=== PATIENT | female | born 1990 | race Caucasian/White ===

== ENCOUNTER → 2020-06-11 15:50 | Outpatient (CLI) | payer OTHER, SELFPAY ==
[2020-06-14 20:08] LABS: Chlamydia By Nucleic Acid AMP Negative (Negative)
[2020-06-14 21:50] LABS: Gonococcus By Nucleic Acid AMP Negative (Negative)
== END ==
PROVIDERS: Visit Provider Obstetrics & Gynecology
DX: Z11.3 Encounter for screening for infections with a predominantly sexual mode of transmission (principal)
CPT/HCPCS: 87491; 87591

== ENCOUNTER 2020-10-30 04:53 | Inpatient (IN) | payer SELFPAY, OTHER ==
[2020-10-30] VITALS (20 sets, daily range): BP systolic 95–124; BP diastolic 36–76; PULSE 47–91; RESP 14–16; TEMP 36.1–36.6; O2SAT 95–99; BMI 25.6
[2020-10-30] MEDS: Lactated Ringers 1,000 ML 999 ML IV (05:15)
[2020-10-30 05:35] LABS: Absolute Lymphocyte Count 1.58 X10^3/uL (0.83-4.51); Basophil# 0.02 X10^3/uL; Basophil% 0.3 % (0-1); Eosinophil# 0.13 X10^3/uL; Eosinophils% 2.1 % (0-5); Hematocrit 32.1 % (37-47); Hemoglobin 11.2 g/dL (12.0-15.0); Lymphocyte # 1.58 X10^3/ul (4.0); Mean Corp Hgb Conc 34.9 g/dL (32-36); Mean Corpuscular Hgb 31.6 pg (27.0-32.0); Mean Corpuscular Volume 90.7 fL (81-99); Mean Platelet Vol. 8.9 fl (6.2-12.0); Monocyte# 0.56 X10^3/uL; Monocyte% 8.9 % (0-10); NRBC Flagged by Analyzer 0 % (0-5); Neutrophil # 3.99 X10^3/uL (2.7-7.7); Neutrophil % 63.2 % (47-70); Platelet Count 142 K/mm3 (150-450); RBC Distribution Width CV 12.6 % (11.6-14.6); RBC Distribution Width SD 41.4 fl (35.1-43.9); Red Blood Count 3.54 M/mm3 (4.2-5.4); White Blood Count 6.3 K/mm3 (4.4-11.0)
[2020-10-30] MEDS: Acetaminophen 500 MG Tablet 1000 MG PO ×4 (05:40→23:47)
[2020-10-30] MEDS: Lactated Ringers 1,000 ML 150 ML IV (06:18)
[2020-10-30] MEDS: Sodium Citrate/Citric Acid 30 ML UDC PO (07:14)
[2020-10-30] MEDS: Cefazolin 2 GM in 0.9% Normal Saline 100 ML IV (07:31)
--- NOTE | 2020-10-30 07:32 | PCM.HP.BLA ---
History and Physical Date of Admission: 10/30/20 ACOG ANTEPARTUM RECORD - HISTORY AND PHYSICAL (10/30/2020) Name: JAJA OROZCO History of this : This is a 30 year old [id number] presents at 39 wks + 1 days gestation for repeat . 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 : 1990 Age: 30 Address: [address] [place] [address] Phone: H) [phone] Insurance Carrier: [employer] [phone] Emergency Contact: CANDE NAVA (NEIGHBOR) [phone] ...................................................................... Final MEENU: 11/05/20 By Ultrasound: 22 weeks 3 days PARITY: (G-Total Pregnancies P-Fullterm,Premature,Induced AB,Spont AB, Ectopics, Multiple,Living) MEENU CONFIRMATION: By LMP: 01/31/20 Final MEENU: 11/05/20 OB PROBLEM LIST: AFP and carrier screening declined Breast feeding Late to care Lives almost 90 minutes from [place] Prior C/S x 3, plans repeat C/S Prior (2009) Spouse has an uncle with Down Syndrome ALLERGIES: NKDA MEDICATIONS: Vitamin tablet SOCIAL HISTORY: Smoking - Never Alcohol Use - None Diet - no particular diet Lifestyle - low stress lifestyle and Exercise - active Employer - [employer] 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 Drug Use - None Sexual Activity - Residence - lives with Place of - [place], [place] Spouse-Sig Other Name - Candelario Spouse-Sig Other Occupation - Furniture [employer] Children Name(s) - DannyElias rahman Elaine, Matthias(16) PRIOR DELIVERY HISTORY DEL DATE GEST LAB WT LB WT OZ TYPE ANES LABOR TX 04 Nov 08 38 0 5 12 C-Sec Epidural No 06 Sep 16 39 0 7 3 C-Sec Spinal No 20 Mar 10 39 22 6 12 Epidural No 25 Jan 13 39 0 6 7 C-Sec Spinal No ANTEPARTUM FLOW CHART VISIT GE RTC FU F F KS U U DATE WK MD WKS HT PN HR M SS BP ED WT KS GL D EF ST __ ____ ___ __ __ ___ __ __ __ ___ __ __ __ ___ __ Sep 38 JMW 3 38 + 102/64 sl 151 tr - 09 Sep 36 JMW 1 36 + + 122/86 sl 151 - - 02 Sep 35 JMW 1 35 + + 122/68 0 149 - - 09 Feb 32 JMW 2 32 + + 112/68 0 149 tr - Aug 31 JM 2 30 - + + 117/78 0 147 tr - Jul 27 JMW 3 26 + + 115/75 0 143 - - 02 Dec 22 JMW 4 21 + + 122/74 0 138 - - ANTEPARTUM NOTE(S): Oct 22 2020: Pre-op consents signed,Drink/Wash given Oct 08 2020: LARC form signed, Good FM Oct 01 2020: Ctxs-occas, Good FM Sep 10 2020: Feeling Well,Good FM Aug 27 2020: Doing Well Jul 30 2020: Doing Well, 1hrGTT/CBC today Jul 03 2020: Sono Today, See Note COMPREHENSIVE ANTEPARTUM NOTE(S): Oct 22 2020: Jaja presents here today for PNV and pre-op for her Wednesday10/30/20 with PASQUALE at [facility]. Questions answered and consents signed. Covid screening form signed and a copy given as well as faxed to [facility]. Denies new concerns at this time. SARAH Aug 27 2020: 30wk, 1hr GTT wnl. JM Jul 03 2020: Jaja presents here today for PNV, and Sono. Reports she has been having trouble with varicose veins and would like to get some stockings. Script provided for compression stockings. Glucola/Instructions given. Good FM. SARAH Jun 26 2020: TELEHEALTH NOB VISIT - 30 MINUTE DURATION. Jaja is a 29 year old with an MEENU of 11/05/2020, current GA is 21 w 1 d. 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 She has had 3 previous C/S's, and 1 ; she plans to have a R C/S at [facility]. Breast feeding is planned. Past history updated. Jaja states that she feels very good and Jun 11 2020: Jaja presents for her Missed Menses. She is a 29yo G 5, P 4 with hx of 3prior C-sections. She is planning to deliver via R/ at [facility]. LMP 01/31/20, MEENU by LMP is 11/05/20. Pt is approx 18w 5d GA and is reporting +FM. She is taking OTC PNV's. No questions or concerns voiced. depression screening has a score of 0 today, and poses no difficulty with ADL's. +UPT in office today. JT Nov 10 2020: ok REVIEW OF SYSTEMS: GENERAL - Denies fever, or chills SKIN - Denies rash, new skin lesions, or change in moles EYES - Denies blurred vision, or change in visual acuity EARS - Denies ear pain, or difficulty hearing NOSE - Denies nasal congestion, discharge, or bleeding MOUTH - Denies sore throat, or difficulty swallowing NECK - Denies pain or swelling RESPIRATORY - Denies shortness of breath, cough, wheezing CARDIOVASCULAR - Denies palpitations, chest pain, orthopnea, PND, peripheral edema, syncope or claudication GASTROINTESTINAL - Denies nausea, vomiting, diarrhea, constipation, Denies abdominal pain, melena and or bright red blood GENITOURINARY - Denies dysuria, frequency of urination, urgency, or hesitancy MUSCULOSKELETAL - Denies joint or muscle pain, or back pain NEUROLOGICAL - Denies localized numbness, weakness, or tingling PSYCHIATRIC - Denies depression, anxiety, substance abuse or suicide attempts ENDOCRINE - Denies heat or cold intolerance, weight loss or gain, increasing thirst HEMATO-IMMUNOLOGIC - Denies easy bruising, bleeding, oral ulcerations or recurrent infections GENETICS SCREENING: Age 35+ years: No Thalassemia: No Neural Tube Defect: No Down Syndrome: Spouse's uncle CLAUDETTE-SACHS: No Sickle Cell Disease: No Hemophilia: No Musc. Dystrophy: No Cystic Fibrosis: No-declines screening [place] Chorea: No Mental Retardation: No Fragile X: No Other genetic: No Other defects: No SABs/still births: No Drugs since LMP: No INFECTION HISTORY: High risk AIDS: No High risk Hepatitis: No Exposed to TB: No Exposed to Herpes: No Rash/viral illness since LMP: No History of STD: No MENSTRUAL HISTORY: *Menarche (Age Onset): 11* PAST SUMMARY: PARITY: 1. Total Pregnancies............ 5 2. Full Term Pregnancies........ 4 3. Premature.................... 0 4. Abortions - Induced.......... 0 5. Abortions - Spontaneous...... 0 6. Ectopics..................... 0 7. Multiple Births.............. 0 8. Living Children.............. 4 PAST #1: Date of :.................. 06/05/08 Gestation Weeks:................ 38 Length of labor(hours):......... 0 Sex:............................ M Weight-lbs:............... 5 Weight-oz:................ 12 Type of Delivery:............... C-Sect Type of Anesthesia:............. Epidural Place of Delivery:.............. [facility] Treatment of Labor?:.... No Comment: TOXEMIA PAST #2: Date of :.................. 03/21/10 Gestation Weeks:................ 39 Length of labor(hours):......... 22 Sex:............................ M Weight-lbs:............... 6 Weight-oz:................ 12 Type of Delivery:............... Type of Anesthesia:............. Epidural Place of Delivery:.............. [facility] Treatment of Labor?:.... No Comment: PAST #3: Date of :.................. 02/23/13 Gestation Weeks:................ 39 Length of labor(hours):......... 0 Sex:............................ F Weight-lbs:............... 6 Weight-oz:................ 7 Type of Delivery:............... C-Sect Type of Anesthesia:............. Spinal Place of Delivery:.............. [facility] Treatment of Labor?:.... No Comment: PPH - 2 U PRBC'S PAST #4: Date of :.................. 04/07/16 Gestation Weeks:................ 39 Length of labor(hours):......... 0 Sex:............................ M Weight-lbs:............... 7 Weight-oz:................ 3 Type of Delivery:............... C-Sect Type of Anesthesia:............. Spinal Place of Delivery:.............. [facility] Treatment of Labor?:.... No Comment: PHYSICAL EXAMINATION General Appearence: 30 yo female in no acute distress Vital Signs: AF, VSS Heart: RRR without rubs or gallops Lungs: CTA x 2 Breasts: deferred Abdomen: gravid Pelvis: Cervix: Presentation: cephalic Station: Fetus: Size: AGA Movement: present Heart: present LAB TEST(S) ORDERED SINCE:02/09/20 07/30/2020 GLUCOSE CHALLENGE 50GM 1 HOUR 07/30/2020 CBC + DIFF 06/16/2020 POMERENE 3 [CCL] 06/14/2020 CHLAMYDIA/GC JOCE APTIMA 06/11/2020 URINALYSIS 06/11/2020 CBC + DIFF 06/11/2020 BB TYPE 10/30/2020 TYPE AND SCREEN 10/30/2020 CBC W/DIFF, AUTOMATED == ==== Order Observation Description Value Ref_Range A* Site == ==== S [facility]~[address] [place], [address]~ TYPE AND SCRE AB SCREEN GEL NEGATIVE ML CBC W/DIFF, AUT NOTE GRIMES CBC W/DIFF, AUT WBC 6.3 K/mm3 4.4-11.0 ML CBC W/DIFF, AUT RBC 3.54 M/mm3 4.2-5.4 L ML CBC W/DIFF, AUT HGB 11.2 g/dL 12.0-15.0 L ML CBC W/DIFF, AUT HCT 32.1 37-47 L ML CBC W/DIFF, AUT MCV 90.7 fL 81-99 ML CBC W/DIFF, AUT MCH 31.6 pg 27.0-32.0 ML CBC W/DIFF, AUT MCHC 34.9 g/dL 32-36 ML CBC W/DIFF, AUT RDW CV 12.6 11.6-14.6 ML CBC W/DIFF, AUT RDW SD 41.4 fl 35.1-43.9 ML CBC W/DIFF, AUT PLT 142 K/mm3 150-450 L ML CBC W/DIFF, AUT MPV 8.9 fl 6.2-12.0 ML CBC W/DIFF, AUT NEUT% 63.2 47-70 ML CBC W/DIFF, AUT LY% 25.0 19-41 ML CBC W/DIFF, AUT MONO% 8.9 0-10 ML CBC W/DIFF, AUT EO% 2.1 0-5 ML CBC W/DIFF, AUT BASO% 0.3 0-1 ML CBC W/DIFF, AUT IG% 0.500 0.0-0.9 ML IG% - Immature Granulocytes (promyelocytes, myelocytes and metamyelocytes) > 1% indicates that a LEFT SHIFT is Present. CBC W/DIFF, AUT ABSOLUTE NEUT 4.0 X10 3/uL 2.0-7.7 ML CBC W/DIFF, AUT ABSOLUTE LYMPH 1.58 X10 3/uL 0.83-4.51 ML CBC W/DIFF, AUT NUCLEATED RBC 0 0-5 ML GLUCOSE CHALLEN NOTE [facility] GLUCOSE CHALLEN GLUCOSE CHALLENGE 50GM [address] [facility] GLUCOSE CHALLENGE 50 GMS 1 HOUR GLUCOSE CHALLEN GLUCOSE 1HR 102 mg/dl 70 - [address] [facility] CBC + DIFF NOTE [facility] CBC + DIFF CBC + DIFF [facility] CBC-COMPLETE BLOOD COUNT CBC + DIFF WBC 7.0 x 10EE3/UL 4.5 - 10.[address] [facility] CBC + DIFF RBC 3.45 x 10EE6/UL 4.10 - 5.[address] [facility] CBC + DIFF HEMOGLOBIN 11.3 g/dl 12.0 - 16.[address] [facility] CBC + DIFF HEMATOCRIT 31.4 % 34.0 - 46.0 L [facility] CBC + DIFF MCV 91 fl 80 - 99 [facility] CBC + DIFF MCH 33 pg 27 - 33 [facility] CBC + DIFF MCHC 36 X10 3 32 - 36 [facility] CBC + DIFF RDW/CV 13.5 % 12.0 - 15.[address] [facility] CBC + DIFF PLATELET 213 x10EE3/UL 150 - 450 [facility] CBC + DIFF MPV 6.6 fl 6.6 - 10.5 [facility] AUTOMATED DIFFERENTIAL CBC + DIFF NEUT % 72.4 % 46.0 - 76.[address] [facility] CBC + DIFF LYMPH % 17.9 % 20.0 - 45.0 L [facility] CBC + DIFF MONOS % 7.6 % 0.0 - 10.[address] [facility] CBC + DIFF EO % 1.6 % 0.0 - 7.[address] [facility] CBC + DIFF BASO % 0.5 % 0.0 - 2.[address] [facility] CBC + DIFF LYMPH # 1.30 x10EE3/UL 0.80 - 2.[address] [facility] CBC + DIFF NEUT # 5.10 x10EE3/UL 1.50 - 7.[address] [facility] CBC + DIFF MONO # 0.50 x10EE3/UL 0.20 - 1.[address] [facility] CBC + DIFF EO # 0.10 x10EE3/UL 0.00 - 0.[address] [facility] CBC + DIFF BASO # 0.00 x10EE3/UL 0.00 - 0.[address] [facility] CBC + DIFF MANUAL DIFF N/A [facility] CBC + DIFF MORPHOLOGY N/A [facility] {CD] POMERENE 3 [CCL NOTE [facility] POMERENE 3 [CCL RPR Non Reactive NR [facility] POMERENE 3 [CCL HEPATITIS B SURF. AG Negative NEGAT [facility] POMERENE 3 [CCL RUBELLA IGG AB, QUAL Negative NEGAT [facility] Sample is considered negative for IgG antibodies to rubella virus. A negative result presumes that immunity has not been acquired. If exposure to rubella virus is suspected despite a negative finding, a second specimen should be collected and tested one to two weeksn later. Seroconversion from a negative specimen to a positive specimen is evidence of either recent infection, response to vaccination, or administration of immunoglobulins. POMERENE 3 [CCL RUBELLA IGG AB 0.[address] [facility] Index values are interpreted as follows: Negative specimens <0.90 Equivocol specimens 0.90 to 0.99 Positive specimens >0.99 The magnitude of the measured result is not indicative of the amount of antibody present. [facility] [address] [place] [address] Ramin Pascual III, M.D. [id number] BB TYPE NOTE [facility] BB TYPE BB TYPE [facility] TYPE, Rh, AND SCREEN BB TYPE ABO B [facility] BB TYPE RH POS [facility] BB TYPE ANTIBODY SCR negative [facility] URINALYSIS NOTE [facility] URINALYSIS URINALYSIS [facility] URINALYSIS URINALYSIS SPECIMEN TYPE UNSPECIFIED [facility] URINALYSIS COLOR p.yel NORMAL: YELLOW [facility] URINALYSIS CLARITY clear NORMAL: CLEAR [facility] URINALYSIS PH 7 NORMAL: 5.0-8.0 [facility] URINALYSIS PROTEIN NEG NORMAL: NEGATIV [facility] URINALYSIS GLUCOSE NORM NORMAL: NORMAL [facility] URINALYSIS KETONE NEG NORMAL: NEGATIV [facility] URINALYSIS BILIRUBIN NEG NORMAL: NEGATIV [facility] URINALYSIS BLOOD NEG NORMAL: NEGATIV [facility] URINALYSIS UROBILINOG NORM NORMAL: NORMAL [facility] URINALYSIS SP GRAVITY 1.010 NORMAL: 1.010-1 [facility] URINALYSIS NITRITE NEG NORMAL: NEGATIV [facility] URINALYSIS LEUKOCYTES NEG NORMAL: NEGATIV [facility] URINALYSIS MICROSCOPIC NOT INDICATED [facility] CBC + DIFF NOTE [facility] CBC + DIFF CBC + DIFF [facility] CBC-COMPLETE BLOOD COUNT CBC + DIFF WBC 6.8 x 10EE3/UL 4.5 - 10.[address] [facility] CBC + DIFF RBC 3.24 x 10EE6/UL 4.10 - 5.30 L [facility] CBC + DIFF HEMOGLOBIN 10.2 g/dl 12.0 - 16.[address] [facility] CBC + DIFF HEMATOCRIT 29.0 % 34.0 - 46.0 L [facility] CBC + DIFF MCV 90 fl 80 - 99 [facility] CBC + DIFF MCH 32 pg 27 - 33 [facility] CBC + DIFF MCHC 35 X10 3 32 - 36 [facility] CBC + DIFF RDW/CV 13.7 % 12.0 - 15.6 [facility] CBC + DIFF PLATELET 200 x10EE3/UL 150 - 450 [facility] CBC + DIFF MPV 7.0 fl 6.6 - 10.5 [facility] AUTOMATED DIFFERENTIAL CBC + DIFF NEUT % 70.3 % 46.0 - 76.0 [facility] CBC + DIFF LYMPH % 21.0 % 20.0 - 45.[address] [facility] CBC + DIFF MONOS % 6.7 % 0.0 - 10.[address] [facility] CBC + DIFF EO % 1.5 % 0.0 - 7.[address] [facility] CBC + DIFF BASO % 0.5 % 0.0 - 2.0 [facility] CBC + DIFF LYMPH # 1.40 x10EE3/UL 0.80 - 2.[address] [facility] CBC + DIFF NEUT # 4.80 x10EE3/UL 1.50 - 7.[address] [facility] CBC + DIFF MONO # 0.50 x10EE3/UL 0.20 - 1.[address] [facility] CBC + DIFF EO # 0.10 x10EE3/UL 0.00 - 0.[address] [facility] CBC + DIFF BASO # 0.00 x10EE3/UL 0.00 - 0.10 [facility] CBC + DIFF MANUAL DIFF N/A [facility] CBC + DIFF MORPHOLOGY N/A [facility] {CD] CHLAMYDIA/GC NA NOTE [facility] CHLAMYDIA/GC NA CHLAMY,NUC ACID Negative Negative LC CHLAMYDIA/GC NA GC BY NUC ACID Negative Negative LC Performed at: [facility] [place], [place] [id number] Watch Assembler: Tanya Lozada MD, Phone: [phone] B POSITIVE == ==== Impression /Plan: 39 wks + 1 days intrauterine for repeat . Preparations in progress for delivery.
--- NOTE | 2020-10-30 07:39 | OP.PCM_ITS ---
Delivery Classification: Scheduled Final MEENU: 11/05/20 Final MEENU Source: US <20 weeks Gestational age: 39 Weeks and 1 Days planning intern: Nati Handy Type of Anesthesia:: Spinal - With Duramorph Date of Procedure: 10/30/20 Pre-Operative Diagnosis: Prior Section Post-Operative Diagnosis: Prior Section Description of Procedure: Surgeon: Candelario Hahn MD, FACOG Anesthesia: John Alvarado CRNA Procedure: Repeat Low Transverse Cervical Caesarean Section Findings: Viable male with Apgars of 8/9 in occiput anterior presentation with clear amniotic fluid and normal three-vessel placenta. Indication: This is a 30-year-old who presents for her fourth at 39+ weeks gestation. care has otherwise been uneventful. The patient has been counseled regarding the risk and indications of this procedure including the possibility of bleeding infection and injury to surrounding structures such as bowel bladder. All questions were answered. Procedure: Patient was taken to the operating room where after spinal anesthesia was placed, the patient was prepped and draped in usual sterile fashion and a Bower catheter was placed. The abdomen was entered through the patient's prior Pfannenstiel incision and peritoneum was entered bluntly. After developing a bladder flap on the lower uterine segment a low transverse incision was made on the uterus and head was delivered onto the operative field with the assistance of Kiwi vacuum suction due to low presentation of the head and the nose mouth and oropharynx were bulb suctioned. Subsequently a viable male infant was born with Apgars of 8/9 weighing 8 pounds 5 ounces. The infant was n oted to cry move all extremities vigorously on the operative field. The umbilical cord was doubly clamped and ligated and infant handed to the nursery personnel who were present for the delivery. Placenta was delivered and noted to be 3 vessels and normal. Uterus was exteriorized and remaining placental tissue was removed. The uterus was then closed in 2 layers first with running locked 0 Vicryl suture followed by a second imbricating layer with 0 Vicryl suture. 0 Vicryl suture was then used in a horizontal mattress interrupted fashion to affect final hemostasis of the uterine incision line. Normal fallopian tubes and ovaries were visualized and the uterus was returned to the pelvis. Hemostasis was noted and rectus abdominis muscles were reapproximated in the midline with interrupted Number 0 Vicryl suture in a horizontal mattress fashion although it should be noted that the right rectus muscle had had a prior malar incision which made closure of the rectus muscles in the midline tentative. Fascia was closed with running Number 1 PDS Strata fix suture. Subcutaneous tissue was irrigated with copious amounts of saline solution and then closed with running 3-0 Vicryl suture. Skin was closed with 4-0 monocryl suture in a running subcuticular fashion. Steri strips and a Mepilex dressing were placed across the incision. The patient tolerated the procedure well and was taken to the recovery room in satisfactory condition. Sponge, needle, and instrument counts were all reportedly correct. EBL was less than 500 cc. Ancef 2 gms IV was given prior to the procedure. Spicemen to Pathology: None Complications: None Amniotic Fluid Description: Clear Placenta Disposition: [facility] Specimen(s) sent to pathology: None Drain: Bower to straight drain Fluids Replaced: Crystalloid Cord Entanglement: None Cord Vessel Description: 3 Vessels Esitmated Blood Loss (ml): 500 cc Gender: Male (1 minute): 8 (5 minute): 9 Antibiotic Given: Ancef 2 grams IV x1 Pt instructed on risks of surgery: Bleeding, Infection, Injury to surrounding structure(s) including bowel and bladder Complications: None - Admit VTE Documentation VTE Present on Admission: Yes VTE Mechan Device Prophylaxis: SCD's
--- NOTE | 2020-10-30 07:40 | DCINST_ITS ---
Discharge Diet: No Restrictions Discharge Activity: May not drive while taking narcotic pain medications., May Shower, May Take a Tub Bath May resume sexual activity in: 4-6 weeks Lifting Restrictions: 20 pounds Additional Activity Instructions:: Nothing in the vagina for 4-6 weeks. You may return to work/school in 6 weeks. Call your doctor if your incision/area has: Continuous Slow Oozing, Sudden Increased Bleeding, Increased Pain/ Swelling, Increased Redness, Foul Smelling Discharge Call your doctor if you observe: Fever of 101 or Higher, Inability to urinate, Inability to have a bowel movement, Using more than one pad per hour Additional Instructions: If you experience any of the following, contact your healthcare provider. * Bleeding that soaks a pad every hour for 2 hours * Fever 100.4 or higher * Unrelieved incision or abdominal pain * Swelling, redness, discharge or bleeding from your incision or episiotomy site * Your incision begins to separate * Problems urinating (including inability to urinate or burning while urinating). * Visual changes * Severe headache * Flu-like symptoms * Pain or redness in one of both of your breasts * Pain, warmth, tenderness or swelling in your legs, especially the calf area * Frequent nausea and vomiting * Symptoms of depression or anxiety If you experience any of the following, call 911 or go to the nearest Emergency Room. * Chest pain * Problems breathing * Seizure activity * Partial or complete paralysis of a body part, slurred speech, weakness or drooping of the face, or a sudden inability to walk or hold your balance Allergies/Adverse Reactions: Allergies No Known Allergies Allergy (Verified 10/30/20 05:30) Medications to take at Discharge Docosahexanoic Acid [ Dha] 200 mg PO 10/30/20 Docusate Sodium [Colace] 100 mg PO BID PRN PRN #60 capsule 10/30/20 Oxycodone [Oxyir] 5 mg PO Q6H PRN PRN 7 Days #10 tablet 10/30/20 The following prescriptions were given: Docusate Sodium [Colace] 100 mg PO BID PRN PRN #60 capsule PRN Reason: Constipation Transmission Status: Pending to [facility] Oxycodone [Oxyir] 5 mg PO Q6H PRN PRN 7 Days #10 tablet PRN Reason: Pain Score 6-10 Transmission Status: Sent to [facility] Follow-Up: Call to make an appointment with your doctor for an incision check in 1-2 weeks. You will also need a 6 week post- follow up appointment. Test results from this visit will be discussed in further detail at your follow- up appointment, if applicable. Please Follow Up With: Candelario Hahn MD - [phone] When: Call to make an appointment for an incision check in 2 weeks. Primary Care Physician: Care Physician,No Primary [Primary Care Provider] -
[2020-10-30] MEDS: Oxytocin 30 units/NS 500 ml 30 UNITS/500 ML IV.SOLN 167 UNITS IV (08:50)
[2020-10-30 08:57] LABS: HIV - WCH Non-Reactive (Nonreactive)
[2020-10-30 09:04] LABS: Hepatitis C Antibody Non-Reactive (Nonreactive)
[2020-10-30] MEDS: Methylergonovine 0.2 MG/ML Ampul IM (09:33)
[2020-10-30] MEDS: Ketorolac 30 MG/ML Syringe IV ×3 (10:00→21:57)
[2020-10-30] MEDS: Nalbuphine 10 MG/ML Ampul 5 MG IV ×2 (11:17→11:25)
[2020-10-30] MEDS: Lactated Ringers 1,000 ML 100 ML IV (12:01)
[2020-10-30] MEDS: Cefazolin 1 GM/50 ML BAG IV ×2 (15:24→23:48)
--- NOTE | 2020-10-30 18:21 | NURSING ---
Attempted to get patient up to chair at 1500 but patient requested to get up at a later time because of and talking to family on the phone currently.
[2020-10-30] MEDS: 0.9% Saline Lock 10 ML Syringe IV (21:57)
[2020-10-31 03:11] VITALS: BP 96/47; PULSE 59; RESP 14; TEMP 36; O2SAT 97
[2020-10-31] MEDS: Nalbuphine 10 MG/ML Ampul 5 MG IV (03:22)
[2020-10-31] MEDS: 0.9% Saline Lock 10 ML Syringe IV (03:23)
[2020-10-31] MEDS: Ketorolac 30 MG/ML Syringe IV (03:23)
[2020-10-31 04:48] LABS: Hematocrit 26.9 % (37-47); Hemoglobin 9.3 g/dL (12.0-15.0); Mean Corp Hgb Conc 34.6 g/dL (32-36); Mean Corpuscular Hgb 31.8 pg (27.0-32.0); Mean Corpuscular Volume 92.1 fL (81-99); Mean Platelet Vol. 8.9 fl (6.2-12.0); Platelet Count 121 K/mm3 (150-450); RBC Distribution Width CV 12.9 % (11.6-14.6); RBC Distribution Width SD 42.6 fl (35.1-43.9); Red Blood Count 2.92 M/mm3 (4.2-5.4)
[2020-10-31] MEDS: Acetaminophen 500 MG Tablet 1000 MG PO ×2 (06:14→12:19)
--- NOTE | 2020-10-31 07:51 | PN.OBGYN_ITS ---
Subjective: Patient without complaints. Tolerating diet well. Minimal pain noted. Positive flatus. Wants to go home later today if possible. Objective: Mepilex dressing is clean and dry without staining. Hemoglobin okay. Good urine output. - Physical Exam Vitals/I&O's: Vital Signs Temp Pulse Resp BP Pulse Ox 96.8 F L 59 L 14 96/47 L 97 10/31/20 03:11 10/31/20 03:11 10/31/20 03:11 10/31/20 03:11 10/31/20 03:11 Oxygen Delivery Method Room Air Weight: 149 lb 8 oz Body Mass Index (BMI) 25.6 Intake and Output for Last 24 Hours 10/29/20 10/30/20 10/31/20 23:59 23:59 23:59 Intake Total 3093.33 / 3093.33 50 / 50 Output Total 3550 / 3550 900 / 900 Balance -456.67 / -456.67 -850 / -850 Laboratory Results 10/30/20 05:15: HIV 1&2 Antibody Non-Reactive 10/30/20 05:15: Hepatitis C Antibody Non-Reactive 10/31/20 04:42: WBC 9.0, RBC 2.92 L, Hgb 9.3 L, Hct 26.9 L, MCV 92.1, MCH 31.8, MCHC 34.6, RDW Std Deviation 42.6, RDW Coeff of [place] 12.9, Plt Count 121 L, MPV 8.9 Current Medications Acetaminophen (Acetaminophen 500 Mg Tablet) 1,000 mg PO Q6H [facility] Last Admin: 10/31/20 06:14 Dose: 1,000 mg Documented by: Bisacodyl (Bisacodyl 10 Mg Suppository) 10 mg RC UD PRN PRN Reason: If no BM Diphenhydramine HCl (Diphenhydramine 25 Mg Capsule) 25 mg PO Q6H PRN PRN PRN Reason: ITCHING Stop: 10/31/20 08:51 Hydrocortisone (Hydrocortisone 2.5% Crm) 1 applic TOPICAL TID PRN PRN; Protocol PRN Reason: Discomfort Lactated Ringer's () 1,000 mls @ 100 mls/hr IV .Q10H [facility] Last Admin: 10/31/20 05:41 Dose: Not Given Documented by: Ibuprofen (Ibuprofen 600 Mg Tablet) 600 mg PO Q6H [facility] Methylergonovine Maleate (Methylergonovine 0.2 Mg/Ml Ampul) 0.2 mg IM X1 PRN PRN Reason: Uterine Atony Last Admin: 10/30/20 09:33 Dose: 0.2 mg Documented by: Nalbuphine HCl (Nalbuphine 10 Mg/Ml Ampul) 5 mg IV Q3H PRN PRN PRN Reason: ITCHING Stop: 10/31/20 08:51 Last Admin: 10/31/20 03:22 Dose: 5 mg Documented by: Naloxone HCl (Naloxone 0.4 Mg/Ml Syringe) 0.02 mg IV Q1M PRN PRN Reason: RR <10 and pt unresponsive Ondansetron HCl (Ondansetron 4 Mg/2 Ml Vial) 4 mg IV Q4H PRN PRN PRN Reason: Nausea Oxycodone HCl (Oxycodone 5 Mg Tablet) 5 - 10 mg PO Q4H PRN PRN PRN Reason: Pain Score 4-10 Prochlorperazine Edisylate (Prochlorperazine 10 Mg/2 Ml Vial) 10 mg IV Q6H PRN PRN PRN Reason: NAUSEA Senna/Docusate Sodium (Senna/Docusate Sodium 1 Tablet) 0 tablet PO DAILY [facility] Last Admin: 10/30/20 11:17 Dose: Not Given Documented by: Simethicone (Simethicone 80 Mg Tablet) 80 mg PO PCHS PRN PRN Reason: Indigestion/stomach pain Sodium Chloride (0.9% Saline Lock 10 Ml Syringe) 5 - 15 ml IV UD PRN PRN Reason: SALINE FLUSH Last Admin: 10/31/20 03:23 Dose: 10 ml Documented by: Medical Necessity - Tobacco Use Smoking Status: Never smoker Assessment/Plan Doing well postoperative day #1 status post repeat . Will discharge to home later today with routine instructions if baby is able to go.
[2020-10-31 08:29] VITALS: BP 102/52; PULSE 55; RESP 16; TEMP 36.4
[2020-10-31] MEDS: Ibuprofen 600 MG Tablet PO ×2 (09:27→15:43)
[2020-10-31] MEDS: Senna/Docusate Sodium 1 Tablet PO (09:27)
[2020-10-31 14:31] VITALS: BP 100/72; PULSE 63; RESP 16; TEMP 36.1
== END 2020-10-31 16:30 | disposition home or self-care (01) | DRG 788 ==
PROVIDERS: Admitting Provider Obstetrics & Gynecology; Referring Provider Obstetrics & Gynecology; Visit Provider Obstetrics & Gynecology
PROC: 10D00Z1 Extraction of Products of Conception, Low, Open Approach (ICD-10-PCS; CPT 59514; principal; 2020-10-30 07:15)
DX: O34.211 Maternal care for low transverse scar from previous cesarean delivery (principal); Z3A.39 39 weeks gestation of pregnancy; Z37.0 Single live birth
CPT/HCPCS: 85025; 85027; 86703; 86803; 86850; 86900; 86901; 99218; J7120; A4216; G0378; J2405

== ENCOUNTER 2020-11-04 07:29 | Day surgery (SDC) | payer OTHER, SELFPAY ==
[2020-10-30 05:00] VITALS: BMI 25.6
[2020-11-04] MEDS: Lactated Ringers 1,000 ML 999 ML IV (07:30)
== END 2020-11-04 08:52 | disposition home or self-care (01) ==
PROVIDERS: Referring Provider Anesthesiology; Visit Provider Anesthesiology
PROC: 3E0R3GC Introduction of Other Therapeutic Substance into Spinal Canal, Percutaneous Approach (ICD-10-PCS; CPT 62273; principal; 2020-11-04 07:25)
DX: O89.4 Spinal and epidural anesthesia-induced headache during the puerperium (principal)
CPT/HCPCS: 62273; J7120

== ENCOUNTER → 2020-12-17 | Outpatient (CLI) | payer OTHER, SELFPAY ==
[2020-10-30 05:00] VITALS: BMI 25.6
[2020-12-20 12:27] LABS: HPV Reflexed? NOT INDICATED
== END | disposition home or self-care (01) ==
LOC: LABSPEC 13:05
PROVIDERS: Visit Provider Obstetrics & Gynecology
DX: Z12.4 Encounter for screening for malignant neoplasm of cervix (principal)
CPT/HCPCS: 88175; G0145